=== PATIENT | female | born 1945 | race Caucasian/White ===

== ENCOUNTER 2021-02-10 01:26 | Day surgery (SDC) | payer MEDICARE, SELFPAY ==
[2021-01-29 12:38] VITALS: BMI 50.3
--- NOTE | 2021-02-10 07:45 | WPDANESEPPF ---
Anes - Initial Pre Proc Eval Procedure: Operation Date: 02/10/21 10:00 Proposed Procedures p Screening Colonoscopy - Santy Mann MD Date/Time: 02/10/21 07:45 Surgeon: Santy Mann MD Pre Op Diagnosis: hx of colon polyps Patient Data Age: 75 Gender: F Height: 1.52 m Weight: 117 kg Allergies Allergy/AdvReac Type Severity Reaction Status Date / Time hydromorphone Allergy Unknown HOT, Verified 02/10/21 09:42 BURNING FROM INSIDE OUT, ITCHING Penicillins Allergy Unknown UNKNOWN - Verified 02/10/21 09:42 A CHILD, SWELLING AND BLACKED OUT Home Medications Medication Instructions Recorded Confirmed Type aspirin 81 mg tablet,delayed 81 mg PO DAILY 07/04/19 01/29/21 History release flash glucose scanning reader #1 each 07/04/19 12/05/20 Rx pen needle, diabetic 31 gauge x #1,200 each 07/04/19 12/05/20 History 10/27 flash glucose sensor #2 each 07/05/19 12/05/20 Rx alcohol swabs 1 pad TOPICAL .PRN #100 each 11/29/19 12/05/20 Rx blood glucose control high and low #1 each 11/29/19 12/05/20 Rx solution blood-glucose meter #1 each 11/29/19 12/05/20 Rx insulin syringe-needle U-100 0.5 #100 each 03/04/20 12/05/20 Rx mL 31 gauge x 10/27 loratadine 10 mg tablet 10 mg PO DAILY 04/16/20 01/29/21 History blood sugar diagnostic See Rx Instructions .ROUTE 06/27/20 12/05/20 Rx .COMPLEX #200 strip lancets See Rx Instructions .ROUTE 06/27/20 12/05/20 Rx .COMPLEX #200 ea hydrochlorothiazide 25 mg tablet See Rx Instructions .ROUTE 10/21/20 01/29/21 Rx .COMPLEX #90 tablet insulin glargine 100 unit/mL 37 unit SUB-Q DAILY #10 ml 11/04/20 01/29/21 Rx subcutaneous solution lisinopril 5 mg tablet 5 mg PO DAILY #90 tablet 12/17/20 01/29/21 Rx lovastatin 40 mg tablet 40 mg PO QPM #90 tablet 01/13/21 01/29/21 Rx metformin 1,000 mg tablet 1,000 mg PO BID #180 tablet 01/13/21 01/29/21 Rx Patient hx anesthesia problems: none Family hx anesthesia problems: none PMFSH Past Medical History Medical History (Updated 12/05/20 @ 09:37 by Sherly Munoz NP) Chicken pox Cholecystectomy planned Edema Hyperlipidemia Hypertension Measles Obesity Osteoarthritis Pancreatitis Sleep apnea Type 2 diabetes mellitus Surgical History Surgical History (Updated 02/10/21 @ 07:46 by Jacob Ellington DO) H/O total knee replacement X2 2012 History of cataract surgery 11/2017 History of cholecystectomy History of hysterectomy Family History Family History (Updated 07/03/19 @ 17:10 by Gin Borden CMA) Mother Diabetes mellitus Father Meningitis Other Family history of cardiovascular disease Social History Social History Smoking status: Former smoker Tobacco type: cigarettes Smoking end date: 06/14/05 Alcohol intake: never Living arrangements: with family Spiritual care concerns: No Anes - Eval Final PreProcedure Day of Procedure 02/10/21 07:45 Patient weight: super morbidly obese Heart: regular rate and rhythm Lungs: clear to auscultation and normal air movement Airway: Mallampati scale class II Neurological: alert and oriented Last oral intake: >/= 8 hours ASA classification: III Emergent: no Anesthetic plan: proceed Anesthesia type and monitoring: general GIVS and standard monitoring Informed Consent: The patient's anesthetic plan and its attendant risks and benefits were discussed with the patient/family/POA. Questions were solicited and answers provided to the satisfaction of the patient/family/POA.
[2021-02-10 09:52] VITALS: BP 131/85; PULSE 77; RESP 18; TEMP 35.6; O2SAT 100; BMI 50.6
[2021-02-10] MEDS: LACTATED RINGERS 1,000 ML 150 ML IV CONT (09:53)
[2021-02-10 09:58] LABS: Glucose Point of Care 138 mg/dl (65-105)
--- NOTE | 2021-02-10 10:20 | PM.HPGS ---
History of Present Illness History of Present Illness Consent: Risks, benefits, and alternatives have been discussed and questions answered. Patient agrees to proceed with procedure. Chief complaint: hx of colon polyps Narrative: Isabel Marinelli is a 75 year old female with last colonoscopy 11 years ago, also last few months with loose stools but not bad enough to take meds Review of Systems Constitutional: Constitutional: Denies headache(s) and Denies weakness Eyes: Eyes: Denies blurry vision ENT: Reports Normal hearing present, Denies headache(s) and Denies neck pain Cardiovascular: Cardiovascular: Denies chest pain and Denies dyspnea Respiratory: Respiratory: Denies dyspnea Gastrointestinal: Gastrointestinal: Reports no additional gastrointestinal complaints Genitourinary: Genitourinary: Denies dysuria Musculoskeletal: Musculoskeletal: Denies neck pain Integumentary/Breasts: Skin/Breast: Denies dry skin Neurologic: Reports Normal hearing present, Denies headache(s) and Denies weakness Psychiatric: Psychiatric: Denies anxiety Endocrine: Endocrine: Denies change in body appearance Hematologic/Lymphatic: Hematologic/Lymphatic: Denies easy bleeding Allergic/Immunologic: Allergic/Immunologic: Denies urticaria PMFSH Past Medical History Medical History (Updated 12/05/20 @ 09:37 by Sherly Munoz NP) Chicken pox Cholecystectomy planned Edema Hyperlipidemia Hypertension Measles Obesity Osteoarthritis Pancreatitis Sleep apnea Type 2 diabetes mellitus Surgical History Surgical History (Updated 02/10/21 @ 07:46 by Jacob Ellington, ) H/O total knee replacement X2 2012 History of cataract surgery 11/2017 History of cholecystectomy History of hysterectomy Family History Family History (Updated 07/03/19 @ 17:10 by Gin Borden CMA) Mother Diabetes mellitus Father Meningitis Other Family history of cardiovascular disease Social History Social History Smoking status: Former smoker Tobacco type: cigarettes Smoking end date: 06/14/05 Alcohol intake: never Living arrangements: with family Spiritual care concerns: No Meds Home Medications and Allergies Home Medications Medication Instructions Recorded Confirmed Type aspirin 81 mg tablet,delayed 81 mg PO DAILY 07/04/19 02/10/21 History release flash glucose scanning reader #1 each 07/04/19 12/05/20 Rx pen needle, diabetic 31 gauge x #1,200 each 07/04/19 12/05/20 History /16 flash glucose sensor #2 each 07/05/19 12/05/20 Rx alcohol swabs 1 pad TOPICAL .PRN #100 each 11/29/19 12/05/20 Rx blood glucose control high and low #1 each 11/29/19 12/05/20 Rx solution blood-glucose meter #1 each 11/29/19 12/05/20 Rx insulin syringe-needle U-100 0.5 #100 each 03/04/20 12/05/20 Rx mL 31 gauge x 5/16 loratadine 10 mg tablet 10 mg PO DAILY 04/16/20 02/10/21 History blood sugar diagnostic See Rx Instructions .ROUTE 06/27/20 12/05/20 Rx .COMPLEX #200 strip lancets See Rx Instructions .ROUTE 06/27/20 12/05/20 Rx .COMPLEX #200 ea hydrochlorothiazide 25 mg tablet See Rx Instructions .ROUTE 10/21/20 02/10/21 Rx .COMPLEX #90 tablet insulin glargine 100 unit/mL 37 unit SUB-Q DAILY #10 ml 11/04/20 02/10/21 Rx subcutaneous solution lisinopril 5 mg tablet 5 mg PO DAILY #90 tablet 12/17/20 02/10/21 Rx lovastatin 40 mg tablet 40 mg PO QPM #90 tablet 01/13/21 02/10/21 Rx metformin 1,000 mg tablet 1,000 mg PO BID #180 tablet 01/13/21 02/10/21 Rx Allergies Allergy/AdvReac Type Severity Reaction Status Date / Time hydromorphone Allergy Unknown HOT, Verified 02/10/21 09:42 BURNING FROM INSIDE OUT, ITCHING Penicillins Allergy Unknown UNKNOWN - Verified 02/10/21 09:42 A CHILD, SWELLING AND BLACKED OUT Vital Signs Vital Signs - 24 hr 02/10/21 09:52 Temperature 96.0 F L Pulse Rate 77 Respiratory Rate 18 Blood Pressure 131/85 Puls
[2021-02-10 10:45] VITALS: BP 100/57; PULSE 74; RESP 19; O2SAT 96
[2021-02-10 10:55] VITALS: BP 120/67; PULSE 76; RESP 21; O2SAT 100
[2021-02-10 11:10] LABS: Glucose Point of Care 126 mg/dl (65-105)
== END 2021-02-10 11:29 | disposition home or self-care (01) ==
PROVIDERS: PCP Internal Medicine; Visit Provider Internal Medicine Gastroenterology
PROC: 0DJD8ZZ Inspection of Lower Intestinal Tract, Via Natural or Artificial Opening Endoscopic (ICD-10-PCS; CPT 45378; principal; 2021-02-10 10:00)
DX: Z12.11 Encounter for screening for malignant neoplasm of colon (principal); K63.5 Polyp of colon; K52.89 Other specified noninfective gastroenteritis and colitis; K57.30 Diverticulosis of large intestine without perforation or abscess without bleeding; K64.8 Other hemorrhoids; E78.5 Hyperlipidemia, unspecified; I10 Essential (primary) hypertension; M19.90 Unspecified osteoarthritis, unspecified site; E11.9 Type 2 diabetes mellitus without complications; G47.30 Sleep apnea, unspecified; Z87.891 Personal history of nicotine dependence; Z79.82 Long term (current) use of aspirin; Z79.4 Long term (current) use of insulin; E66.01 Morbid (severe) obesity due to excess calories; Z68.43 Body mass index [BMI] 50.0-59.9, adult
CPT/HCPCS: 45385; 45380; 82948; 88305; J2704; J7120

== ENCOUNTER → 2021-04-14 11:05 | Outpatient (CLI) | payer MEDICARE, SELFPAY ==
--- NOTE | ~2021-04-14 | MM_ITS ---
EXAMINATION: MM screening kike BI w karin HISTORY: Screening TECHNIQUE: Craniocaudal and mediolateral oblique 3-D tomosynthesis images were obtained and synthetic 2-D images were generated. CAD analysis was submitted and interpreted. COMPARISON: Comparison to multiple prior studies sequentially, with oldest reviewed study dated 01/03. BREAST PARENCHYMAL COMPOSITION: There are scattered areas of fibroglandular density. FINDINGS: There are stable benign-appearing breast asymmetries and calcifications. There is no eviden ce of suspicious mass, calcification, or architectural distortion to suggest malignancy in either rebecca ast. There has been no suspicious interval change. IMPRESSION: 1. No mammographic evidence of malignancy. 2. Recommend routine screening mammography in one year. BI-RADS Category 2: Benign finding(s). Reviewed, dictated and finalized at location A.
--- NOTE | ~2021-04-14 | DEXA_ITS ---
Bone Density Report Name: Isabel Marinelli Age: 75 Sex: Female Ethnicity: White Date of : 1945 Indication: postmenopausal; screening for osteoporosis; height loss; hysterectomy; Referring Provider: Sherly Munoz Study: Bone densitometry was performed. Exam Date: April 14, 2021 Accession number: [id number] Bone Density: Region BMD T-score Z-score Classification AP Spine (L2, L3, L4) 0.970 -1.0 1.7 Normal Femoral Neck (Left) 0.751 -0.9 1.3 Normal Total Hip (Left) 0.988 0.4 2.3 Normal Femoral Neck (Right) 0.804 -0.4 1.8 Normal Total Hip (Right) 0.967 0.2 2.2 Normal Total Hip Mean 0.978 0.3 2.3 Normal World Health Organization criteria for BMD impression classify patients as: Normal (T-score at or above -1.0), Osteopenia (T-score between -1.0 and -2.5), or Osteoporosis (T-score at or below -2.5). 10-year Fracture Risk: FRAX not reported because: All T-scores for Spine Total, Hip Total, Femoral Neck at or above -1.0 Clinical Information Provided by Patient: Has the following medical conditions: Hysterectomy Patient maximum height was 60 Menopause Age: 33 No regular weight bearing exercise Drinks caffeinated beverages Onset of menses at age 11 Number of children 4 Impression: The patient has normal bone mass. Discussion: BONE DENSITY IS ABOVE THE MINIMUM DESIRABLE LEVEL AT ALL SKELETAL SITES TESTED. This patient?s bone mineral density is above the minimum desirable level (T-score -1.0 or better) at all sites measured. The patient should follow a healthful lifestyle (good nutrition with adequate calcium and vitamin D, and appropriate weight-bearing exercise). Follow-Up: Consider repeating this study in 5 years or sooner if there is some new clinical indication. Reported by: SKIP on 04/14/2021 11:41:00 AM. Reviewed, dictated and finalized at location ASirisha CASPER
== END ==
PROVIDERS: PCP Internal Medicine; Visit Provider Nurse Practitioner
DX: Z12.31 Encounter for screening mammogram for malignant neoplasm of breast (principal); Z78.0 Asymptomatic menopausal state
CPT/HCPCS: 77063; 77067; 77080

== ENCOUNTER 2021-08-13 12:37 | Outpatient (CLI) | payer MEDICARE, SELFPAY ==
--- NOTE | 2021-08-14 13:12 | WPDPFTINT ---
PFT Procedure Performed PFT Procedure Performed Spirometry with Pre/Post Bronchodilator Plethysmography (Lung Vol) Diffusing Cap (DLCO) Flow Vol Loop PFT Interpretation Lung volumes were measured with the body plethysmography method. The diminished lung volumes are indicative of restrictive respiratory disease. Spirometry showed diminished expiratory flow rates and a diminished FEV1 to FVC ratio 67%, indicative of obstructive airway disease. Following administration of a bronchodilator there was no significant increase in expiratory flow rates. Lung diffusion capacity is mildly reduced at 64% predicted. Impression: Combined restrictive respiratory and obstructive airway disease with no response to bronchodilators on this testing. Mildly reduced lung diffusion capacity.
== END 2021-08-13 12:38 | disposition home or self-care (01) ==
PROVIDERS: PCP Internal Medicine; Visit Provider Nurse Practitioner
DX: R06.00 Dyspnea, unspecified (principal)
CPT/HCPCS: 94060; 94726; 94729

== ENCOUNTER 2021-11-11 13:44 | Outpatient (RCR) | payer MEDICARE, SELFPAY ==
[2021-11-11 13:59] VITALS: BP 138/66; PULSE 92; RESP 20; TEMP 36.8; O2SAT 95
[2021-11-11] MEDS: FAMOTIDINE 20 MG TABLET PO (14:04)
[2021-11-11] MEDS: ACETAMINOPHEN 325 MG TABLET 650 MG PO (14:04)
[2021-11-11] MEDS: diphenhydrAMINE HCl CAP 25 MG CAPSULE PO (14:04)
[2021-11-11] MEDS: BEBTELOVIMAB 175 MG/2 ML VIAL IV PUSH (14:26)
[2021-11-11 15:00] VITALS: BP 134/64; PULSE 80; RESP 20; O2SAT 96
== END 2021-11-11 16:21 ==
LOC: AMCINF 13:44
PROVIDERS: Referring Provider Nurse Practitioner; Visit Provider Internal Medicine Hematology & Oncology
DX: U07.1 COVID-19 (principal); I10 Essential (primary) hypertension; E11.9 Type 2 diabetes mellitus without complications
CPT/HCPCS: A9270; M0222; Q0222

== ENCOUNTER 2022-04-13 07:44 | Outpatient (CLI) | payer MEDICARE, SELFPAY ==
--- NOTE | 2022-05-04 11:10 | WPDSLEEPSTUD ---
Sleep Study Date of Study: 04/13/22 Ordering Provider: Sherly Munoz NP Interpreting Physician: Isabel Viera MD Sleep Study Type: Split Polysomnogram Height: 1.52 m Weight: 120.656 kg Body Mass Index: 51.9 Neck Circumference (inches): 20 [place]: 17 Reason for Sleep Study Hypersomnolence Sleep History Isabel Marinelli is a 77-year-old woman with obstructive sleep apnea who has used CPAP she rarely awakens from sleep feeling short of breath. She does not awaken at night with heartburn, belching or coughing. She frequently snores and always loud enough that others complain about it. She frequently has trouble sleeping with a cold. She does not wake up gasping for breath during the night. She frequently sweats excessively at night. She occasionally notices her heart pounding or beating irregularly at night. She is always falling asleep during the day, falling asleep involuntarily but not while driving. She occasionally has loss of muscle tone with strong emotion. She does not have daytime difficulties due to excessive sleepiness. She does not feel paralyzed on waking or falling asleep nor does she have vivid dreamlike scenes upon awakening or falling asleep. She does not feel afraid to go to sleep. She does not have nightmares, rarely remembers her dreams. She constantly has racing thoughts. She does not feel sad or depressed. She constantly has anxiety, constantly worries about things. She occasionally has muscular tension and occasionally notices parts of her body jerking. She does not kick at night. She frequently has crawling and aching feelings in her legs. She occasionally has leg pain at night. She does not have morning jaw pain. She does not grind her teeth during sleep. She occasionally is bothered by pain during the day. She rarely is awakened by pain at night. She frequently wakes up feeling stiff in the morning with sore achy muscles and pain in the neck and spine. She has headaches. Normal bedtime is 12 midnight falling asleep within 3045 minutes, typically waking 1 time at night to go to the bathroom. After this awakening, she may not be able to return to sleep for up to 2 hours. She wakes in the morning at 5:00 a.m.. She estimates getting 5 hours of sleep on an average night. She takes naps in the afternoon. Sometimes a short nap is refreshing. She is drowsy in the morning for an hour or longer. She feels better in the afternoon compared to other times of day. Habits: Quit tobacco years ago. Caffeine 2 cups per day. [facility] Past Medical History Medical History (Updated 05/04/22 @ 11:18 by Isabel Viera MD) Adenomatous colon polyp Chicken pox Cholecystectomy planned Chronic diarrhea Edema Hyperlipidemia Hypertension Measles Obesity Osteoarthritis Pancreatitis Skin cancer Sleep apnea Type 2 diabetes mellitus Surgical History Surgical History H/O total knee replacement X2 2012 History of cataract surgery 11/2017 History of cholecystectomy History of hysterectomy Family History Family History Mother Diabetes mellitus Father Meningitis Other Family history of cardiovascular disease Social History Social History Smoking status: Never smoker Tobacco type: cigarettes Smoking end date: 06/14/05 Alcohol intake: never Spiritual care concerns: No Medications Home Medications Medication Instructions Recorded Confirmed Type aspirin 81 mg tablet,delayed 81 mg PO DAILY 07/04/19 03/18/22 History release (Adult Low Dose Aspirin) pen needle, diabetic 31 gauge x #1,200 07/04/19 03/18/22 History 10/27 (BD Ultra-Fine Short Pen Needle) alcohol swabs (BD Alcohol Swabs) 1 pad topical .PRN #100 11/29/19 03/18/22 Rx blood glucose control high and low #1 11/29/19 03/18/22 Rx solution
[2022-05-04 12:01] VITALS: BMI 51.9
== END 2022-04-14 07:32 | disposition home or self-care (01) ==
PROVIDERS: PCP Internal Medicine; Visit Provider Nurse Practitioner
DX: G47.30 Sleep apnea, unspecified (principal); G47.33 Obstructive sleep apnea (adult) (pediatric)
CPT/HCPCS: 95811

== ENCOUNTER 2023-10-02 08:13 | Outpatient (CLI) | payer MEDICARE, SELFPAY ==
--- NOTE | ~2023-10-02 | DEXA_ITS ---
Bone Density Report Name: MELVI VAZQUEZ Age: 78 Sex: Female Ethnicity: White Date of : 1945 Indication: postmenopausal; screening for osteoporosis; height loss; cancer; hysterectomy; Referring Provider: REYES COLLADO Study: Bone densitometry was performed. Exam Date: October 02, 2023 Accession number: [id number] Bone Density: Region BMD T-score Z-score Classification AP Spine(L1-L4) 0.928 -1.1 1.6 Osteopenia Femoral Neck (Left) 0.749 -0.9 1.4 Normal Total Hip (Left) 1.043 0.8 2.9 Normal Femoral Neck (Right) 0.713 -1.2 1.1 Osteopenia Total Hip (Right) 0.957 0.1 2.2 Normal Total Hip Mean 1.000 0.5 2.6 Normal World Health Organization criteria for BMD impression classify patients as: Normal (T-score at or above -1.0), Osteopenia (T-score between -1.0 and -2.5), or Osteoporosis (T-score at or below -2.5). 10-year Fracture Risk(1): Major Osteoporotic Fracture 9.7% Hip Fracture 1.8% Reported Risk Factors: [place] (), Neck BMD=0.713, BMI=52.2 (1) FRAX(R) Version 3.08. Fracture probability calculated for an untreated patient. Fracture probability may be lower if the patient has received treatment. Clinical Information Provided by Patient: Has the following medical conditions: Cancer, Hysterectomy Patient maximum height was 60 Menopause Age: 33 No regular weight bearing exercise Drinks caffeinated beverages Onset of menses at age 11 Number of children 6 Impression: The patient has low bone mass, based on the Right Femoral Neck T-score. The patient has an estimated ten-year risk of hip fracture of 1.8% and an estimated ten-year risk of major fracture of 9.7%, based on the WHO FRAX algorithm. Discussion: BONE DENSITY IS LOW AT ONE OR MORE SKELETAL SITES. This patient's lowest T-score is low at one or more skeletal sites. It meets the World Health Organization's (WHO) criteria for ?low bone mass? (T-score between -1.0 and -2.5). The patient's 10-year risk of fracture as calculated by FRAX is less than the threshold where pharmacological therapy is recommended by the National Osteoporosis Foundation (NOF). However, all treatment decisions require clinical judgment and consideration of individual patient factors, including patient preferences, comorbidities, previous drug use, risk factors not captured in the FRAX model (e.g., frailty, falls, vitamin D deficiency, increased bone turnover, interval significant decline in bone density) and possible under or overestimation of fracture risk by FRAX. The patient should follow a healthful lifestyle (good nutrition with adequate calcium and vitamin D, and appropriate weight-bearing exercise). Follow-Up: Consider repeating this study in 2 to 3 years to reassess this patient's status, or sooner if there is some new clinical indication. Reported by: RAFA on 10/02/2023 8:41:00 AM. Reviewed, dictated and finalized at location A. [facility] CENTERZechariah
== END 2023-10-02 08:14 | disposition home or self-care (01) ==
LOC: ANHIMG 08:15
PROVIDERS: PCP Internal Medicine; Visit Provider Internal Medicine
DX: Z78.0 Asymptomatic menopausal state (principal); M85.88 Other specified disorders of bone density and structure, other site; M85.851 Other specified disorders of bone density and structure, right thigh
CPT/HCPCS: 77080

== ENCOUNTER 2023-12-03 10:00 | Outpatient (RCR) | payer MEDICARE, SELFPAY ==
--- NOTE | 2023-10-18 10:49 | OPREHPOC ---
Outpatient Therapy Plan of Care This is a Multidisciplinary Plan of Care that may contain components documented by all disciplines (PT, OT, and ST.) PT Problem 1 PT Problem #1 Knowledge Deficit PT Goal 1 Goal *indep with HEP * indep with lymphedema self care and compression garments Target Visit 20 PT Problem 2 PT Problem #2 Pain PT Goal 1 Goal * pt report pain in both legs of 2/10 at worst Target Visit 10 PT Problem 3 PT Problem #3 Impaired Lymphatic System PT Goal 1 Goal decrease lymphedema of both legs to improve skin integrity and decrease pain: circumferential measurement of legs to 56 cm from bottom of foot: 1* R 580 cm 2* L 580 cm no fibrotic tissue over lower leg 3* R 4* L minimal redness over lower leg 5* R 6* L visible medial and lateral malleoli 7* R 8* L Target Visit 20
--- NOTE | 2023-10-18 10:49 | PTOPEVAL1 ---
Assessment and note entered by Radha White, PT Evaluation Information Assessment Status Evaluation Diagnosis lymphedema bilateral LE's Onset 1 year Subjective Information in the past year, swelling is more; have a drawer of support hose, but they are not comfortable and cannot tolerate wearing them; Activity: live with her daughter, who does all the home chores; she can do light cooking, indep with bathing and dressing- wear slip on shoes and cannot put on socks/ cannot reach feet; drives and does not use cane or walker; cannot stand very long due to back pain; Reported Pain Level Pain Score 5: Self Report Additional Pain Score Comments legs are heavy, tight and itch Assessment PT Clinical Summary Isabel has the diagnosis of bilateral LE lymphedema. She has an issue with chronic issues with leg swelling and has over the counter compression socks that are not comfortable and she does not tolerate wearing them. She is active and indep with self care, but cannot reach her feet, recently moved in with her daughter, after her . With the evaluation: she has skin changes over both lower legs with skin discoloration of redness and brown skin, fibrotic tissue and edema over ankles; tenderness to touch over lower legs and cannot tolerate shoes with heels on the back touching her heel; she has an enlarged abdomen with pannus over anterior hips. Skilled PT services are indicted for lymphedema treatment to both legs: multilayer compression wraps, manual lymph drainage, intermittent compression pump with education for lymphedema management, skin care, compression garments and LE exercises. Plan of Care Interventions Intermittent Compression,Lymphedema Compression Wraps, Manual Lymph Drainage,Patient Education, Therapeutic Exercise PT Services Indicated Yes Treatment Frequency and 3x/wk for 20 visit total Duration These treatments will address the objective and functional deficits as defined abo
--- NOTE | 2023-11-03 12:42 | PCPTNOTE ---
Mrs. Marinelli requires R and L lower leg and foot/ankle compression to manage her chronic condition of lymphedema of both legs. Her medical history includes multiple surgeries that have put her at risk for lymphedema: R and L TKR, abdominal surgeries: gall bladder, hysterectomy, appendectomy and c- section; diabetes and HTN. All of these have disrupted her lymphatic system. Isabel is receiving comprehensive PT lymphedema treatment to reduce the size of her legs and improve her tissue integrity. And education for self management and care of lymphedema. She requires a velcro compression garment due to not having the ability to pull up a stocking on her legs. I measured and recommended for patient to use for her compression: R and L lower leg Circaid Juxtafit essential lower leg garments: size M-X, full calf, short length R and L Solaris Ready Wrap Foot SL: size: medium, regular length Radha White PT, [facility]; [facility] [phone]
--- NOTE | 2023-11-10 09:59 | PCPTNOTE ---
faxed pt info and order request to [facility] for pt compression garments, for insurance authorization. She has signed a release of info.
--- NOTE | 2023-11-22 11:56 | OPREHPOC ---
Outpatient Therapy Plan of Care This is a Multidisciplinary Plan of Care that may contain components documented by all disciplines (PT, OT, and ST.) PT Problem 1 PT Problem #1 Knowledge Deficit PT Goal 1 Goal *indep with HEP * indep with lymphedema self care and compression garments Target Visit 10 Progress Met Comment 11-22-23 progress continue towards goals PT Goal 2 Target Visit 18 PT Problem 2 PT Problem #2 Pain PT Goal 1 Goal * pt report pain in both legs of 2/10 at worst Target Visit 10 Progress Met Comment 11-22-23 progress continue towards goal to monitor pain PT Goal 2 Target Visit 18 PT Problem 3 PT Problem #3 Impaired Lymphatic System PT Goal 1 Goal decrease lymphedema of both legs to improve skin integrity and decrease pain: circumferential measurement of legs to 56 cm from bottom of foot: 1* R 580 cm 2* L 580 cm no fibrotic tissue over lower leg 3* R 4* L minimal redness over lower leg 5* R 6* L visible medial and lateral malleoli 7* R 8* L Target Visit 10 Progress Partially Met Comment 11-22-23 progress met goals 5,6,7,8; improved with others continue towards goals PT Goal 2 Target Visit 18
--- NOTE | 2023-11-22 11:56 | PTOPEVAL1 ---
Assessment and note entered by Radha White, PT Evaluation Information Assessment Status Progress Diagnosis lymphedema bilateral LE's Onset 1 year Subjective Information is putting on the velcro garments herself; using pump at home and leg exercises and walking as much as she is able; surprised at how small legs are, skin is not as red and shoes fitting better; cannot afford to buy the garments, have to wait on insurance to get them. Reported Pain Level Pain Score 0: Self Report Assessment PT Clinical Summary Isabel has received 10 PT sessions. Compared to the initial evaluation: circumferential measurements of LE's: decreased R by 25.9 cm and L by 9.9 cm, with improved skin integrity--less redness, less fibrotic tissue and less reported sensitivity; Education for self care of lymphedema with self manual drainage, leg exercises. She is using her home compression pump. The goals were partially met. Continue PT treatment, awaiting her velcro garments for both lower legs and foot/ankle. Plan of Care Interventions Intermittent Compression,Lymphedema Compression Wrap ,Manual Lymph Drainage,Patient Education, Therapeutic Exercise PT Services Indicated Yes Treatment Frequency and 1-2x/wk for 8 additional visits Duration These treatments will address the objective and functional deficits as defined above. The patient will be advanced safely and appropriately in order for the patient to progress towards his/her prior level of function. Additional exercises will be introduced and as well as a comprehensive home exercise program upon discharge, if needed, ?to ensure carryover of functional gains achieved in the clinic. This treatment plan has been reviewed and agreement upon by the patient.
--- NOTE | 2023-12-10 14:28 | PCPTNOTE ---
pt called and canceled today's appt due to not having her garments yet.
--- NOTE | 2024-01-06 14:58 | PCPTNOTE ---
called pt, left voice mail message-- ask if she has her garments yet, status check with her.
--- NOTE | 2024-02-21 09:44 | PCPTNOTE ---
PHYSICAL THERAPY DISCHARGE REPORT Sherly Munoz NP Isabel has received 13 PT sessions, from October 17 to December 02. She was then placed on hold due to awaiting for her compression garments. She called/canceled and phone contact was made. The garments were not obtained. Discharge PT at this time. The goals were not addressed.
== END 2024-01-16 23:59 | disposition home or self-care (01) ==
LOC: ANHPT 10:00
PROVIDERS: PCP Internal Medicine; Visit Provider Nurse Practitioner
DX: I89.0 Lymphedema, not elsewhere classified (principal)
CPT/HCPCS: 29581; 97016; 97140; 97161; 97530

== ENCOUNTER 2025-05-19 12:34 | Emergency (ER) | payer MEDICARE, SELFPAY ==
--- NOTE | ~2025-05-19 | XR_ITS ---
EXAMINATION: XR ankle LT min 3V, 05/19/2025 14:50 KILNMAN HISTORY: Fall COMPARISON: No comparisons available. Findings: No acute fracture or malalignment. No significant degenerative changes. Soft tissues unremarkable. Impression: No acute fracture or malalignment. Reviewed, dictated and finalized at location P. MAN Impression: No acute fracture or malalignment.
--- NOTE | ~2025-05-19 | XR_ITS ---
EXAMINATION: XR foot LT min 3V, 05/19/2025 15:55 DYE ROOM HELPER HISTORY: left foot pain, trauma COMPARISON: No comparisons available. Findings: No acute fracture or malalignment. No significant degenerative changes. Soft tissues unremarkable. Impression: No acute fracture or malalignment. Reviewed, dictated and finalized at location P. ROOM HELPER Impression: No acute fracture or malalignment.
[2025-05-19 12:36] VITALS: BP 124/51; PULSE 76; RESP 18; TEMP 36.4; O2SAT 96
--- OUTSIDE RECORDS SUMMARY | 2025-05-19 14:35 | XMS_ITS | Clinical Summary ---
Author Organization [facility] Address [address] [place] [address] Care Team Providers Care Nuclear Powerplant Supervisor Name Role Phone Margarito Moreau DO Primary Care Provider [phone] Source Comments [facility],non-owned Affiliates and Associated Physician Practices is amultiple site organization consisting of ambulatory clinics and hospital sitesin [place], [place], [place] and [place]. This disclosure is being madepursuant to the Care Everywhere program and may not contain all information available regarding this patient. 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 Gender Identity Not on file Sexual Orientation Not on file Plan of Treatment Health Maintenance Due Date Last Done Comments BONE DENSITY TESTING 1943 DTAP/TDAP/TD VACCINES (1 - Tdap) 1962 PNEUMOCOCCAL VACCINE 50+ (1 of 1 - PCV) 1993 ZOSTER VACCINE (1 of 2) 1993 Respiratory Syncytial Virus (RSV) Vaccine Pt: or over 60 yrs (1 - 1-dose 75+ series) 2018 DEPRESSION SCREENING 06/14/2024 COVID-19 VACCINE (1 - 2024-2 6 season) 2025 INFLUENZA VACCINE (#1) 2025 HEPATITIS B VACCINE Aged Out No longe r eligible based on patient's age to complete this topic HIB VACCINE Aged Out No longer eligi ble based on patient's age to complete this topic HPV VACCINE Aged Out No longer eligi ble based on patient's age to complete this topic MENINGOCOCCAL (Group B) VACC INE SHARED DECISION-MAKING Aged Out No longer eligibl e based on patient's age to complete this topic MENINGOCOCCAL GROUPS A/C/Y/W VACCINE Aged Out No longer eligible b ased on patient's age to complete this topic Care Teams Nuclear Powerplant Supervisor Relationship Specialty Start Date End Date Margarito Moreau DO PCP - General 02/25/21
--- NOTE | 2025-05-19 15:35 | ED.GENADULT ---
HPI - General Adult General Chief complaint: Extremity Injury, Lower Stated complaint: L ankle injury Time Seen by Provider: 05/19/25 14:25 History of Present Illness HPI narrative: 80-year-old female presents to the emergency department for evaluation after having a ground level fall. Patient states she was walking at her home in slipped on a ice patch. Patient denies striking head denies loss consciousness. Patient is having left ankle left lateral foot pain. Patient states she is able to ambulate on the foot but it is uncomfortable. Related Data Home Medications ?Medication ?Instructions ?Recorded ?Confirmed ?Last Taken ?Type aspirin 81 mg tablet,delayed 81 mg PO DAILY 07/04/19 04/11/25 02/09/21 History release (Adult Low Dose Aspirin) loratadine 10 mg tablet (Claritin) 10 mg PO DAILY 04/16/20 04/11/25 02/09/21 History Allergies Allergy/AdvReac Type Severity Reaction Status Date / Time hydromorphone Allergy Unknown HOT, Verified 05/19/25 14:13 BURNING FROM INSIDE OUT, ITCHING Penicillins Allergy Unknown UNKNOWN - Verified 05/19/25 14:13 A CHILD, SWELLING AND BLACKED OUT Review of Systems Review of Systems: All systems reviewed & are unremarkable except as noted in HPI and below PMFSH Past Medical History Medical History continuous churn buttermaker (current) use of insulin Essential hypertension Body mass index (BMI) greater than 50 (09/26/18) Bilateral leg edema Squamous cell carcinoma COVID-19 Adenomatous colon polyp Chronic diarrhea Dyspnea on exertion Chicken pox Measles Osteoarthritis Pancreatitis Sleep apnea Obesity Hypertension Type 2 diabetes mellitus Hyperlipidemia Surgical History Surgical History Previous section Hx of appendectomy History of hysterectomy History of cholecystectomy H/O total knee replacement X2 2012 History of cataract surgery 11/2017, bilateral Family History Family History Mother Diabetes mellitus Family history of cardiovascular disease Hypertension Father Meningitis Other Acute myocardial infarction Breast cancer aunt Social History Social History Smoking packs per day: 1 Smoking cigarettes per day: 20.0 Years smoked: 50 Smoking pack-years: 50.00 Smoking status: Former smoker Tobacco type: cigarettes Smoking end date: 06/14/05 Additional smoking assessment comments: off and on, never during Alcohol intake: never Substance use: never Lack of Transportation: YES Lack of Food: Never True Current Housing: I Have Housing Concerned About Future Housing: No Difficulty Paying Gas/Electric Bills: No Difficulty Paying for Meds: YES Currently Unemployed: No Education: High School Diploma/GED Difficulty w/ Childcare or Family Care: No Living arrangements: with family Spiritual care concerns: No Exam Narrative: APPEARANCE: Well appearing, no pain, no distress, well-nourished. HEAD: normocephalic, atraumatic. EYES: PERRLA/EOMI, conjunctivae clear. NOSE: Normal no drainage EARS:TMS clear with good light reflex. THROAT: Pharynx clear, no exudate. NECK: Supple. No adenopathy, no masses. RESPIRATORY: Airway patent, respirations nonlabored. Clear to auscultation bilaterally, no rales, rhonchi, wheezing. CARDIOVASCULAR: Regular rate and rhythm without murmurs rubs or gallops. ABDOMINAL: Soft, nontender, nondistended, normal bowel sounds MUSCULOSKELETAL: left lateral foot left lateral ankle tenderness to palpation without deformity, no ecchymosis, no edema NEURO: Alert. Cranial nerves II through XII intact. Good gait. Good coordination SKIN: Warm, dry. Normal Color Course Vital Signs Vital signs: Vital Signs Temperature 97.6 F 05/19/25 12:36 Pulse Rate 76 05/19/25 12:36 Respiratory Rate 18 05/19/25 12:36 Blood Pressure 124/51 L 05/19/25 12:36 Pulse Oximetry 96 05/19/25 12:36 Oxygen Delivery Room Air 05/19/25 12:36 Temperature 97.6 F 05/19/25 12:36 Pulse Rate 76 05/19/25 16:58 Respiratory Rate 18 05/19/25 16:58 Blood Pressure 138/68 05/19/25 16:58 Pulse Oximetry 96 05/19/25 16:58 Oxygen Delivery Room Air 05/19/25 12:36 MDM MDM Narrative Medical decision making narrative: 80-year-old female presents emergency department for evaluation for the left ankle left lateral foot pain. X-ray of ankle showed no acute fracture or dislocation. x-ray foot shows no acute fracture dislocation. Patient was provided crutches for limited weight-bearing julio wrap for comfort. Patient was advised to take anti-inflammatories for pain control. Patient was encouraged of close follow-up with her primary care physician. All questions concerns were addressed. Patient was well-appearing at time of discharge. Differential Diagnosis Differential Diagnosis: ankle fracture, ankle strain, foot fracture, foot strain Imaging Data Radiologist's impression: ITS Impressions Ankle X-Ray 05/19/25 14:58 Impression: No acute fracture or malalignment. Foot X-Ray 05/19/25 16:31 Impression: No acute fracture or malalignment. Discharge Plan Discharge Clinical Impression: Strain of foot, left Patient Disposition: Home Condition: Stable Instructions: Antibiotic Form, Ankle Strain (ED) Additional Instructions: Julio wrap for increased stability. Utilize a walker for limited weight-bearing. Have close follow-up with your primary care physician. If you have any worsening symptoms then please call or return to the emergency department. Patient Language: Cambodian Prescriptions: No Action (DME) Accu-Chek Guide test strips Strip See Rx Instructions .ROUTE .MEDSUPPLY Qty: 300 12RF Rx Instructions: three times daily aspirin [Adult Low Dose Aspirin] 81 mg tablet,delayed release (DR/EC) 81 mg PO DAILY loratadine [Claritin] 10 mg tablet 10 mg PO DAILY (DME) FreeStyle Edward 2 [place] Mis See Rx Instructions .Route Qty: 1 0RF Rx Instructions: As directed (DME) FreeStyle Edward 2 Sensor Kit See Rx Instructions .Route Qty: 6 0RF Rx Instructions: Every 14 days (DME) APAP Machine and Supplies See Rx Instructions .Route .MEDSUPPLY Qty: 1 0RF Rx Instructions: APAP with pressures 10 cm to 15 cm with the medium Kevin Respironics Comfort Blue gel mask and heated humidity or a fixed pressure of 13 cm with the same mask and humidity mecobalamin (vitamin B12) 5,000 mcg tablet,chewable 5,000 mcg PO .COMPLEX Qty: 90 3RF Rx Instructions: 5,000 mcg orally Once weekly; glucose 4 gram tablet,chewable 4 g PO Q15M PRN (Reason: hypoglycemia) Qty: 360 0RF Rx Instructions: until symptoms of low blood sugar are controlled (DME) pen needle, diabetic 31 gauge x 5/16 needle See Rx Instructions .ROUTE .MEDSUPPLY Qty: 1200 12RF Rx Instructions: Use to inject Lantus glimepiride 1 mg tablet 1 mg PO BID Qty: 180 0RF Rx Instructions: 1 mg before breakfast and 1 mg before supper if blood sugar is above 150 (DME) blood-glucose meter [Accu-Chek Guide Glucose Meter] Misc See Rx Instructions .ROUTE .MEDSUPPLY Qty: 1 0RF Rx Instructions: As directed clotrimazole-betamethasone 1-0.05 % cream 1 applic topical BID 14 Days Qty: 60 1RF alcohol swabs [BD Alcohol Swabs] Pads, Medicated 1 pad TOPICAL .PRN Qty: 100 4RF lancets [Accu-Chek Softclix Lancets] Misc See Rx Instructions .ROUTE .COMPLEX Qty: 200 2RF Dose Instruction: TEST BLOOD SUGAR TWICE DAILY Rx Instructions: TEST BLOOD SUGAR THREE TIMES DAILY insulin glargine [Lantus Solostar U-100 Insulin] 100 unit/mL (3 mL) insulin pen 26 unit subcut QPM Qty: 24 0RF atorvastatin 40 mg tablet See Rx Instructions .ROUTE .COMPLEX Qty: 90 2RF Dose Instruction: Take 1 tablet by mouth once daily Rx Instructions: Take 1 tablet by mouth once daily Jardiance 25 mg tablet See Rx Instructions .ROUTE .COMPLEX Qty: 90 1RF Dose Instruction: TAKE ONE TABLET BY MOUTH DAILY. Rx Instructions: TAKE ONE TABLET BY MOUTH DAILY. metformin 1,000 mg tablet See Rx Instructions .ROUTE .COMPLEX Qty: 180 2RF Dose Instruction: Take 1 tablet by mouth twice daily Rx Instructions: Take 1 tablet by mouth twice daily lisinopril 5 mg tablet See Rx Instructions .ROUTE .COMPLEX Qty: 90 1RF Dose Instruction: Take 1 tablet by mouth once daily Rx Instructions: Take 1 tablet by mouth once daily dexamethasone 1 mg tablet 1 mg PO ONCE Qty: 1 0RF Rx Instructions: please take it around 11 pm and go for blood test next day morning hydrochlorothiazide 25 mg tablet See Rx Instructions .ROUTE .COMPLEX Qty: 90 1RF Dose Instruction: Take 1 tablet by mouth once daily Rx Instructions: Take 1 tablet by mouth once daily cholecalciferol (vitamin D3) 1,250 mcg (50,000 unit) capsule 1,250 mcg PO WEEKLY Qty: 8 0RF Follow-up/Referrals: Sherly Munoz APRN [Primary Care Provider, Internal Medicine]
[2025-05-19 16:58] VITALS: BP 138/68; PULSE 76; RESP 18; O2SAT 96
== END 2025-05-19 16:59 | disposition home or self-care (01) ==
PROVIDERS: Emergency Provider Emergency Medicine; PCP Nurse Practitioner
DX: S96.912A Strain of unspecified muscle and tendon at ankle and foot level, left foot, initial encounter (principal); I10 Essential (primary) hypertension; E11.9 Type 2 diabetes mellitus without complications; E78.5 Hyperlipidemia, unspecified; M19.90 Unspecified osteoarthritis, unspecified site; G47.30 Sleep apnea, unspecified; Z86.16 Personal history of COVID-19; Z85.828 Personal history of other malignant neoplasm of skin; Z86.0101 Personal history of adenomatous and serrated colon polyps; Z87.891 Personal history of nicotine dependence; Z90.49 Acquired absence of other specified parts of digestive tract; Z90.710 Acquired absence of both cervix and uterus; Z98.42 Cataract extraction status, left eye; Z98.41 Cataract extraction status, right eye; W00.0XXA Fall on same level due to ice and snow, initial encounter
CPT/HCPCS: 73610; 73630; 99283